=== PATIENT | female | born 1995 | race Caucasian/White ===

== ENCOUNTER 2020-11-24 18:38 | Emergency (ER) | payer OTHER ==
[~2020-11-24] VITALS: Ht 175.2 cm; Wt 65.7 kg
--- NOTE | 2020-11-24 18:43 | ED General ---
General Stated Complaint: DRUG ABUSE History of Present Illness Date Seen by Provider: Nov 24, 2020 Time Seen by Provider: 18:43 Initial Comments 24-year-old female brought in because she feels funny. Patient has been abusing LSD, MDMA and ketamine for at least the last 2 days. Patient's last use was sometime today. Patient comes in very anxious, obnoxious and just reports "she wants to make it stop" patient is very irritable. Allergies and Home Medications Allergies Coded Allergies: No Known Drug Allergies (Unverified , 11/24/20) Patient Home Medication List Home Medication List Reviewed: Yes Review of Systems Review of Systems Constitutional: no symptoms reported Respiratory: no symptoms reported Cardiovascular: no symptoms reported Gastrointestinal: no symptoms reported Genitourinary: no symptoms reported Musculoskeletal: no symptoms reported Skin: no symptoms reported Psychiatric/Neurological: See HPI Hematologic/Lymphatic: No Symptoms Reported Physical Exam Vital Signs Vital Signs - First Documented 11/24/20 18:38 Temp 37.2 Pulse 111 Resp 20 B/P (MAP) 122/76 (91) Pulse Ox 100 O2 Delivery Room Air Capillary Refill : Height, Weight, BMI Height: '" Weight: lbs. oz. kg; BMI Method: General Appearance: Other (Obviously intoxicated) Neck: Non Tender, Supple Respiratory: Lungs Clear, Normal Breath Sounds Gastrointestinal: Non Tender, Soft Neurologic/Psychiatric: Other (Obviously intoxicated, anxious, disruptive and often not cooperative) Skin: Normal Color, Warm/Dry Progress/Results/Core Measures Suspected Sepsis SIRS Temperature: Pulse: Respiratory Rate: Laboratory Tests 11/24/20 19:00: White Blood Count 11.2H Blood Pressure / Mean: Laboratory Tests 11/24/20 19:00: Creatinine 1.08, Platelet Count 369, Total Bilirubin 0.9 Results/Orders Lab Results Laboratory Tests Test 11/24/20 19:00 Range/Units White Blood Count 11.2 H 4.3-11.0 10^3/uL Red Blood Count 4.57 3.80-5.11 10^6/uL Hemoglobin 14.2 11.5-16.0 g/dL Hematocrit 42 35-52 % Mean Corpuscular Volume 92 80-99 fL Mean Corpuscular Hemoglobin 31 25-34 pg Mean Corpuscular Hemoglobin Concent 34 32-36 g/dL Red Cell Distribution Width 13.7 10.0-14.5 % Platelet Count 369 130-400 10^3/uL Mean Platelet Volume 9.6 9.0-12.2 fL Immature Granulocyte % (Auto) 0 % Neutrophils (%) (Auto) 84 H 42-75 % Lymphocytes (%) (Auto) 10 L 12-44 % Monocytes (%) (Auto) 6 0-12 % Eosinophils (%) (Auto) 0 0-10 % Basophils (%) (Auto) 0 0-10 % Neutrophils # (Auto) 9.4 H 1.8-7.8 X 10^3 Lymphocytes # (Auto) 1.1 1.0-4.0 X 10^3 Monocytes # (Auto) 0.7 0.0-1.0 X 10^3 Eosinophils # (Auto) 0.0 0.0-0.3 10^3/uL Basophils # (Auto) 0.0 0.0-0.1 10^3/uL Immature Granulocyte # (Auto) 0.0 0.0-0.1 10^3/uL Sodium Level 147 H 135-145 MMOL/L Potassium Level 3.5 L 3.6-5.0 MMOL/L Chloride Level 112 H 98-107 MMOL/L Carbon Dioxide Level 14 L 21-32 MMOL/L Anion Gap 21 H 5-14 MMOL/L Blood Urea Nitrogen 12 7-18 MG/DL Creatinine 1.08 0.60-1.30 MG/DL Estimat Glomerular Filtration Rate 63 BUN/Creatinine Ratio 11 Glucose Level 119 H 70-105 MG/DL Calcium Level 10.8 H 8.5-10.1 MG/DL Corrected Calcium 8.5-10.1 MG/DL Magnesium Level 2.0 1.6-2.4 MG/DL Total Bilirubin 0.9 0.1-1.0 MG/DL Aspartate Amino Transf (AST/SGOT) 26 5-34 U/L Alanine Aminotransferase (ALT/SGPT) 19 0-55 U/L Alkaline Phosphatase 51 40-136 U/L Total Protein 8.3 H 6.4-8.2 GM/DL Albumin 5.3 H 3.2-4.5 GM/DL Serum Alcohol < 10 <10 MG/DL My Orders Orders - GONZALEZ,NATHANIEL L DO Alcohol (11/24/20 18:43) Cbc With Automated Diff (11/24/20 18:43) Comprehensive Metabolic Panel (11/24/20 18:43) Hcg,Qualitative Urine (11/24/20 18:43) Magnesium (11/24/20 18:43) Ua Culture If Indicated (11/24/20 18:43) Drug Screen Stat (Urine) (11/24/20 18:43) Ns Iv 1000 Ml (Sodium Chloride 0.9%) (11/24/20 18:57) Diphenhydramine Injection (Benadryl Inje (11/24/20 18:57) Vital Signs/I&O 11/24/20 11/24/20 18:38 20:08 Temp 37.2 Pulse 111 100 Resp 20 18 B/P (MAP) 122/76 (91) 122/76 Pulse Ox 100 100 O2 Delivery Room Air Room Air Capillary Refill : Progress Note : Progress Note Patient stable throughout her stay. Patient calm down. Patient's boyfriend is here with her and ready to take her home. Patient has a longstanding history of drug use. She was discharged following a 1 L normal saline along with 50 of Benadryl. Patient was stable at discharge. Departure Impression Primary Impression: Drug abuse Disposition: 01 HOME, SELF-CARE Condition: Stable Departure-Patient Inst. Patient Instructions: Drug Abuse Treatment, Drug Abuse and Drug Addiction (DC) NATHANIEL GONZALEZ DO Nov 24, 2020 18:43
[2020-11-24] MEDS ORDERED: diphenhydrAMINE 50 MG/ML INJ (BENADRYL) IV STA (18:57)
[2020-11-24] MEDS ORDERED: NS IV 1000 ML 1,000 ML IV STA (18:57)
[2020-11-24 19:08] LABS: BASOPHILS % (AUTO) 0 % (0-10); EOSINOPHILS % (AUTO) 0 % (0-10); HEMATOCRIT 42 % (35-52); HEMOGLOBIN 14.2 g/dL (11.5-16.0); LYMPHOCYTES # (AUTO) 1.1 X 10^3 (1.0-4.0); LYMPHOCYTES % (AUTO) 10 % (12-44); MEAN CORPUSCULAR HEMOGLOBIN 31 pg (25-34); MEAN CORPUSCULAR HGB CONC 34 g/dL (32-36); MEAN CORPUSCULAR VOLUME 92 fL (80-99); MEAN PLATELET VOLUME 9.6 fL (9.0-12.2); MONOCYTES # (AUTO) 0.7 X 10^3 (0.0-1.0); MONOCYTES % (AUTO) 6 % (0-12); NEUTROPHILS # (AUTO) 9.4 X 10^3 (1.8-7.8); NEUTROPHILS % (AUTO) 84 % (42-75); PLATELET COUNT 369 10^3/uL (130-400); WHITE BLOOD COUNT 11.2 10^3/uL (4.3-11.0)
[2020-11-24 19:26] LABS: CARBON DIOXIDE 14 MMOL/L (21-32); CHLORIDE 112 MMOL/L (98-107); POTASSIUM 3.5 MMOL/L (3.6-5.0); SODIUM 147 MMOL/L (135-145)
[2020-11-24 19:27] LABS: ALANINE AMINOTRANSFERASE 19 U/L (0-55); ALBUMIN 5.3 GM/DL (3.2-4.5); ALKALINE PHOSPHATASE 51 U/L (40-136); BILIRUBIN,TOTAL 0.9 MG/DL (0.1-1.0); BUN/CREATININE RATIO 11; CALCIUM 10.8 MG/DL (8.5-10.1); CREATININE SERUM 1.08 MG/DL (0.60-1.30); GFR ESTIMATED 63; GLUCOSE 119 MG/DL (70-105); TOTAL PROTEIN 8.3 GM/DL (6.4-8.2)
[2020-11-24 20:08] VITALS: BP 122/76
== END 2020-11-24 20:08 | disposition home or self-care (01) ==
LOC: ER FS 18:44
DX: F19.10 Other psychoactive substance abuse, uncomplicated (principal)
CPT/HCPCS: 80053; 83735; 99284; G0480; 80320